=== PATIENT | male | born 1985 | race American Indian/Alaskan Native ===

== ENCOUNTER 2018-04-13 15:32 | Emergency (ER) | payer MEDICAID ==
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
[2018-04-13 18:44] LABS: INFLUENZA A B NEGATIVE FOR FLU A/B (NEGATIVE)
[2018-04-13 19:09] VITALS: BP 150/91; PULSE 92; RESP 16; TEMP 99.4
[2018-04-13 19:36] VITALS: O2SAT 98
== END 2018-04-13 19:31 | disposition home or self-care (01) ==
LOC: C.ER 15:32
DX: B34.9 Viral infection, unspecified (principal); S76.111A Strain of right quadriceps muscle, fascia and tendon, initial encounter; Y08.89XA Assault by other specified means, initial encounter; Y92.9 Unspecified place or not applicable